=== PATIENT | female | born 1995 | race Two or more races ===

== ENCOUNTER 2016-08-11 20:34 | Emergency (ER) | payer MEDICAID, OTHER ==
[~2016-08-11] VITALS: Ht 157.5 cm; Wt 52.2 kg
[2016-08-11 20:57] VITALS: BP 136/90
[2016-08-11] MEDS ORDERED: cefTRIAXone W LIDOCAINE 1 GM IM IM ONE (21:15)
[2016-08-11] MEDS ORDERED: methylPREDNISolone SOD SUCC 125 MG/2 ML VL IM ONE (21:15)
[2016-08-11] MEDS ORDERED: diphenhdrAMINE HCL 25 MG CAP PO ONE (21:15)
[2016-08-11] MEDS ORDERED: LIDOCAINE 1% HCL (LOCAL ANESTH.) INJ 20ML MDV ONE (21:28)
[2016-08-11] MEDS ORDERED: cefTRIAXone SOD 1,000 MG VL ONE (21:28)
[2016-08-11] MEDS ORDERED: LIDOCAINE 1% HCL (LOCAL ANESTH.) INJ 20ML MDV IJ ONE (21:45)
== END 2016-08-11 23:15 | disposition home or self-care (01) ==
LOC: ER 20:34
DX: M79.89 Other specified soft tissue disorders (principal); T63.441A Toxic effect of venom of bees, accidental (unintentional), initial encounter
CPT/HCPCS: 96372; 99284; J0696; J2001; J2930